=== PATIENT | male | born 1965 | race African-American/Black ===

== ENCOUNTER 2017-07-08 14:11 | Emergency (ER) | payer OTHER, MEDICAID ==
[2017-07-08 14:34] VITALS: BP 130/84
== END 2017-07-08 19:06 | disposition left against medical advice (07) ==
LOC: ER 14:11
DX: M79.605 Pain in left leg (principal); Z53.21 Procedure and treatment not carried out due to patient leaving prior to being seen by health care provider
CPT/HCPCS: 93971